=== PATIENT | male | born 1985 | race Caucasian/White ===

== ENCOUNTER 2016-03-11 19:20 | Emergency (ER) | payer MEDICARE, OTHER ==
[2016-03-11 19:47] VITALS: BP 126/74; PULSE 87; RESP 18; TEMP 97
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
== END 2016-03-11 20:26 | disposition home or self-care (01) ==
LOC: EC 19:20
DX: R68.84 Jaw pain (principal); Z79.899 Other long term (current) drug therapy; Z79.51 Long term (current) use of inhaled steroids; Z88.5 Allergy status to narcotic agent; Z88.8 Allergy status to other drugs, medicaments and biological substances; J44.9 Chronic obstructive pulmonary disease, unspecified; F17.200 Nicotine dependence, unspecified, uncomplicated
CPT/HCPCS: 99283

== ENCOUNTER 2016-04-16 09:50 | Emergency (ER) | payer MEDICARE, OTHER ==
[2016-04-16 09:57] VITALS: BP 138/80; PULSE 76; RESP 18; TEMP 97
[2016-04-16] MEDS ORDERED: BUPIVACAINE (PF) 0.5% 30 ML VIAL INTRAARTIC STA (10:22)
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
== END 2016-04-16 10:38 | disposition home or self-care (01) ==
LOC: EC 09:50
DX: K02.9 Dental caries, unspecified (principal); F17.200 Nicotine dependence, unspecified, uncomplicated; Z88.5 Allergy status to narcotic agent
CPT/HCPCS: 64400; 99282

== ENCOUNTER 2016-05-03 13:41 | Emergency (ER) | payer MEDICARE, OTHER ==
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
[2016-05-03 15:00] VITALS: BP 129/80; PULSE 54; RESP 15; TEMP 97.7
== END 2016-05-03 14:59 | disposition home or self-care (01) ==
LOC: EC 13:41
DX: K08.89 Other specified disorders of teeth and supporting structures (principal); F17.200 Nicotine dependence, unspecified, uncomplicated
CPT/HCPCS: 99282

== ENCOUNTER 2016-06-14 17:23 | Emergency (ER) | payer MEDICARE, OTHER ==
[2016-06-14 17:37] VITALS: BP 140/85; PULSE 84; RESP 22; TEMP 97.6
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
== END 2016-06-14 17:56 | disposition home or self-care (01) ==
LOC: EC 17:23
DX: K08.89 Other specified disorders of teeth and supporting structures (principal); F17.200 Nicotine dependence, unspecified, uncomplicated; Z88.6 Allergy status to analgesic agent
CPT/HCPCS: 99282

== ENCOUNTER 2016-06-25 20:36 | Emergency (ER) | payer MEDICARE, OTHER ==
[2016-06-25 20:41] VITALS: BP 137/84; PULSE 89; RESP 20; TEMP 98.7
[2016-06-25] MEDS ORDERED: KETOROLAC 30 MG/ML 1 ML VIAL IVP STA (20:49)
[2016-06-25] MEDS ORDERED: SODIUM CHLORIDE 0.9% 1,000 ML IV STA (20:49)
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
[2016-06-25 21:22] LABS: Basophils # (A) 0.2 k/uL (0-0.2); Basophils % (A) 1 %; CH 31.3; CHCM 34.3; Eosinophils # (A) 0.2 k/uL (0-0.7); Eosinophils % (A) 1 %; HCT 48.6 % (39.0-53.0); HDW 2.56; HGB 16.3 gm/dL (13.0-17.5); Luc # (Auto) 0.23; Luc % (Auto) 2; Lymphocytes # (A) 3.1 k/uL (1.0-4.8); Lymphocytes % (A) 25 %; MCH 30.6 pg (25.0-35.0); MCHC 33.4 g/dL (31.0-37.0); MCV 91.6 fL (80.0-100.0); Mean Platelet Volume 6.5; Monocytes # (A) 0.8 k/uL (0-1.0); Monocytes % (A) 6 %; Neutrophils # (A) 8.1 k/uL (1.3-7.7); Neutrophils % (A) 65 %; RBC 5.31 m/uL (4.30-5.90); RDW 13.4 % (11.5-15.5); WBC 12.5 k/uL (3.8-10.6); WBC (Perox) 11.69
[2016-06-25 21:24] LABS: Appearance,Urine Cloudy (Clear); Bilirubin,Urine Negative (Negative); Glucose,Urine (UA) Negative (Negative); Ketones,Urine Negative (Negative); Leukocyte Esterase,Urine Trace (Negative); Mucus,Urine Moderate /hpf; Nitrite,Urine Negative (Negative); Particle Count 6387; Protein,Urine Trace (Negative); Squamous Epithelial Cell,Urine <1 /hpf (0-4); UA Billing (MACRO vs. MICRO) MICRO; Urobilinogen,Urine <2.0 mg/dL (<2.0); WBC,Urine 10 /hpf (0-5)
[2016-06-25 21:32] LABS: ALT 37 U/L (21-72); AST 22 U/L (17-59); Alkaline Phosphatase 84 U/L (38-126); Anion Gap 13 mmol/L; Blood Urea Nitrogen 17 mg/dL (9-20); Calcium 10.5 mg/dL (8.4-10.2); Carbon Dioxide 27 mmol/L (22-30); Chloride 105 mmol/L (98-107); Glucose 89 mg/dL (74-99); Non-African American GFR(MDRD) >60 (>60 ml/min/1.73 sqM); Potassium 4.1 mmol/L (3.5-5.1); Sodium 145 mmol/L (137-145); Total Bilirubin 0.5 mg/dL (0.2-1.3)
--- NOTE | 2016-06-25 21:40 | CT ---
EXAMINATION TYPE: CT abdomen pelvis wo con DATE OF EXAM: 06/25/2016 9:31 PM HISTORY: Right lower quadrant pain after lifting heavy object [address] DLP: 862.00 mGycm. Automated Exposure Control for Dose Reduction was Utilized. TECHNIQUE: CT scan of the abdomen and pelvis is performed without oral or IV contrast. COMPARISON: CT abdomen pelvis December 26, 2015 FINDINGS: Within the limitations of a non-contrast study, the following observations are made. LUNG BASES: No significant abnormality is appreciated. LIVER/GB: Cholecystectomy clips are redemonstrated. PANCREAS: No significant abnormality is seen. SPLEEN: No significant abnormality is seen. ADRENALS: No significant abnormality is seen. KIDNEYS: There are 5-8 calculi scattered throughout the bilateral kidneys each measuring 3 mm or smal ler in size. No hydronephrosis or obstructing renal calculi are seen bilaterally. BOWEL: Evaluation bowel is suboptimal secondary to lack of enteric contrast. There is single fluid-fi lled prominent small bowel loop in the left midabdomen. There is slightly prominent stomach suggestin g recent meal ingestion. Remainder small bowel shows no suspicious dilatation. Fecal material is seen in nondistended colon. Normal-appearing appendix is seen. GENITAL ORGANS: No gross abnormality seen. LYMPH NODES: No greater than 1cm abdominal or pelvic lymph nodes are appreciated. BONES: There is mild facet arthropathy lower lumbar levels. OTHER: No significant additional abnormality is seen. IMPRESSION: Redemonstration of multiple small bilateral renal calculi without hydronephrosis or obstr ucting renal calculi seen. No significant acute finding is seen to account for patient's symptoms.
== END 2016-06-25 22:24 | disposition home or self-care (01) ==
LOC: EC 20:36
DX: S39.012A Strain of muscle, fascia and tendon of lower back, initial encounter (principal); N39.0 Urinary tract infection, site not specified; K08.89 Other specified disorders of teeth and supporting structures; F17.200 Nicotine dependence, unspecified, uncomplicated; Z88.5 Allergy status to narcotic agent; Z88.6 Allergy status to analgesic agent; Z82.69 Family history of other diseases of the musculoskeletal system and connective tissue; X58.XXXA Exposure to other specified factors, initial encounter
CPT/HCPCS: 99284; 96374; 96361; 36415; 80053; 85025; 81001; 87491; 87591; 74176; J1885

== ENCOUNTER 2016-08-31 19:13 | Emergency (ER) | payer MEDICARE, OTHER ==
[2016-08-31 19:19] VITALS: RESP 18
[2016-08-31] MEDS ORDERED: SODIUM CHLORIDE 0.9% 1,000 ML IV STA (19:30)
[2016-08-31] MEDS ORDERED: ONDANSETRON 4 MG/2 ML VIAL IVP STA (19:32)
[2016-08-31 19:51] LABS: Basophils # (A) 0.1 k/uL (0-0.2); Basophils % (A) 1 %; CH 29.8; CHCM 33.6; Eosinophils # (A) 0.2 k/uL (0-0.7); Eosinophils % (A) 2 %; HCT 44.4 % (39.0-53.0); HDW 2.51; HGB 15.1 gm/dL (13.0-17.5); Luc # (Auto) 0.28; Luc % (Auto) 3; Lymphocytes # (A) 2.9 k/uL (1.0-4.8); Lymphocytes % (A) 33 %; MCH 30.3 pg (25.0-35.0); MCHC 34.1 g/dL (31.0-37.0); Mean Platelet Volume 6.4; Monocytes # (A) 0.6 k/uL (0-1.0); Monocytes % (A) 7 %; Neutrophils # (A) 4.8 k/uL (1.3-7.7); Neutrophils % (A) 54 %; RBC 4.98 m/uL (4.30-5.90); RDW 12.8 % (11.5-15.5); WBC 8.8 k/uL (3.8-10.6); WBC (Perox) 8.97
[2016-08-31 20:02] LABS: ALT 34 U/L (21-72); AST 21 U/L (17-59); Acetaminophen <10.0 ug/mL; Alcohol <10 mg/dL; Alkaline Phosphatase 74 U/L (38-126); Anion Gap 13 mmol/L; Blood Urea Nitrogen 11 mg/dL (9-20); Calcium 9.7 mg/dL (8.4-10.2); Carbon Dioxide 25 mmol/L (22-30); Chloride 106 mmol/L (98-107); Glucose 95 mg/dL (74-99); Non-African American GFR(MDRD) >60 (>60 ml/min/1.73 sqM); Salicylate 1.5 mg/dL; Sodium 144 mmol/L (137-145); Total Bilirubin 0.5 mg/dL (0.2-1.3); Total Protein 7.1 g/dL (6.3-8.2)
--- NOTE | 2016-08-31 20:04 | XR ---
EXAMINATION TYPE: XR chest 2V DATE OF EXAM: 08/31/2016 COMPARISON: NONE HISTORY: Drug overdose TECHNIQUE: Frontal and lateral views of the chest are obtained. FINDINGS: Heart and mediastinum are normal. Lungs are clear. Diaphragm is normal. Bony thorax is nor mal. There are chest leads. IMPRESSION: Normal chest
--- NOTE | 2016-08-31 20:05 | XR ---
EXAMINATION TYPE: XR KUB DATE OF EXAM: 08/31/2016 COMPARISON: 12/26/2015 HISTORY: Drug overdose abdominal pain TECHNIQUE: 2 views FINDINGS: Bowel gas pattern is normal. There is no sign of intestinal obstruction or pneumoperitoneum . There are clips from cholecystectomy. There are no pathologic calcifications. Bony structures are i ntact. IMPRESSION: Nonacute abdomen. No change.
--- NOTE | 2016-08-31 20:15 | CT ---
EXAMINATION TYPE: CT renal stones wo con DATE OF EXAM: 08/31/2016 HISTORY: Right side abdominal pain. Hx of kidney stones. CT DLP: 683.7 mGycm. Automated Exposure Control for Dose Reduction was Utilized. TECHNIQUE: CT scan of the abdomen and pelvis is performed without oral or IV contrast. COMPARISON: 06/25/2016 FINDINGS: Lung bases are clear. There is no pleural effusion. Liver spleen pancreas appear normal. Th ere are clips from cholecystectomy. There is no adrenal mass. Kidneys have normal size and contour. T here is no hydronephrosis. There are multiple bilateral renal calculi that measure up to 6 mm. There is no hydronephrosis. Ureters are not dilated. I see no intestinal wall thickening. There are no dilated loops. Bladder distends smoothly. There is no sign of a pelvic mass. There is no ascites. Appendix appears normal. I see no bony destructive pro cess. IMPRESSION: Numerous bilateral renal calculi are similar to old CT scan. No evidence of renal obstruc tion. Normal appendix.
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
[2016-08-31 23:43] VITALS: BP 144/71; PULSE 82; TEMP 98.1
== END 2016-08-31 23:43 | disposition home or self-care (01) ==
LOC: EC 19:13
DX: T40.1X1A Poisoning by heroin, accidental (unintentional), initial encounter (principal); R11.2 Nausea with vomiting, unspecified; R10.9 Unspecified abdominal pain; F17.200 Nicotine dependence, unspecified, uncomplicated; Z88.5 Allergy status to narcotic agent; Z87.442 Personal history of urinary calculi
CPT/HCPCS: 36415; 93005; 80053; 85025; 83520 ×2; 80320; 71020; 74000; 74150; 99285; 96374; 96361 ×2; J2405

== ENCOUNTER 2016-09-18 16:48 | Emergency (ER) | payer OTHER ==
[2016-09-18 17:28] VITALS: RESP 18
[2016-09-18] MEDS ORDERED: KETOROLAC 30 MG/ML 1 ML VIAL IVP STA (18:07)
[2016-09-18] MEDS ORDERED: SODIUM CHLORIDE 0.9% 1,000 ML IV STA (18:07)
[2016-09-18] MEDS ORDERED: ONDANSETRON 4 MG/2 ML VIAL IVP STA (18:07)
[2016-09-18 18:41] LABS: WBC 9.9 k/uL (3.8-10.6); WBC (Perox) 9.07
[2016-09-18 18:42] LABS: Basophils # (A) 0.1 k/uL (0-0.2); Basophils % (A) 1 %; CH 30.8; Eosinophils # (A) 0.2 k/uL (0-0.7); Eosinophils % (A) 2 %; HDW 2.47; HGB 15.3 gm/dL (13.0-17.5); Luc % (Auto) 2; Lymphocytes # (A) 2.5 k/uL (1.0-4.8); Lymphocytes % (A) 25 %; MCV 91.1 fL (80.0-100.0); Monocytes # (A) 0.9 k/uL (0-1.0); Monocytes % (A) 9 %; Neutrophils % (A) 61 %; RBC 4.94 m/uL (4.30-5.90); RDW 14.1 % (11.5-15.5)
[2016-09-18 18:47] LABS: Amorphous Sediment,Urine Moderate /hpf; Appearance,Urine Turbid (Clear); Bilirubin,Urine Negative (Negative); Glucose,Urine (UA) Negative (Negative); Ketones,Urine Negative (Negative); Leukocyte Esterase,Urine Negative (Negative); Mucus,Urine Rare /hpf; Nitrite,Urine Negative (Negative); Particle Count 9345; Protein,Urine Trace (Negative); RBC,Urine >182 /hpf (0-5); Specific Gravity,Urine 1.015 (1.001-1.035); UA Billing (MACRO vs. MICRO) MICRO; Urobilinogen,Urine <2.0 mg/dL (<2.0)
--- NOTE | 2016-09-18 18:49 | XR ---
EXAMINATION TYPE: XR KUB DATE OF EXAM: 09/18/2016 COMPARISON: 08/31/2016 HISTORY: Abdominal pain TECHNIQUE: 2 views FINDINGS: Bowel gas pattern is normal. There is no sign of intestinal obstruction or pneumoperitoneum . Fecal pattern is normal. There are clips from cholecystectomy. Lung bases are clear. IMPRESSION: Nonacute abdomen. No change. There is probably a 3 mm left renal calculus.
[2016-09-18 18:51] LABS: ALT 30 U/L (21-72); AST 18 U/L (17-59); Alkaline Phosphatase 81 U/L (38-126); Amylase 63 U/L (30-110); Anion Gap 8 mmol/L; Blood Urea Nitrogen 13 mg/dL (9-20); Calcium 9.9 mg/dL (8.4-10.2); Carbon Dioxide 28 mmol/L (22-30); Chloride 105 mmol/L (98-107); Glucose 79 mg/dL (74-99); Non-African American GFR(MDRD) >60 (>60 ml/min/1.73 sqM); Potassium 4.5 mmol/L (3.5-5.1); Sodium 141 mmol/L (137-145); Total Bilirubin 0.5 mg/dL (0.2-1.3); Total Protein 7.2 g/dL (6.3-8.2)
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
[2016-09-18 19:08] VITALS: BP 116/78; PULSE 97; TEMP 98.3
== END 2016-09-18 19:15 | disposition home or self-care (01) ==
LOC: EC 16:48
DX: N20.0 Calculus of kidney (principal); R11.2 Nausea with vomiting, unspecified; F17.200 Nicotine dependence, unspecified, uncomplicated; Z88.5 Allergy status to narcotic agent; Z90.49 Acquired absence of other specified parts of digestive tract; Z80.0 Family history of malignant neoplasm of digestive organs
CPT/HCPCS: 36415; 80053; 82150; 83690; 85025; 81001; 80306; 74000; 99284; 96374; 96375; 96361; J2405; J1885

== ENCOUNTER 2016-11-18 18:00 | Emergency (ER) | payer OTHER ==
[2016-11-18 18:07] VITALS: BP 136/66; PULSE 103; RESP 20; TEMP 98.2
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
== END 2016-11-18 18:41 | disposition home or self-care (01) ==
LOC: SUPCPDRO 18:00 → EC 18:00
DX: K02.9 Dental caries, unspecified (principal); F17.200 Nicotine dependence, unspecified, uncomplicated; Z79.899 Other long term (current) drug therapy
CPT/HCPCS: 99282

== ENCOUNTER 2017-04-04 17:05 | Emergency (ER) | payer OTHER ==
[2017-04-04 17:11] VITALS: BP 141/94; PULSE 109; RESP 18; TEMP 98.6
[2017-04-04] MEDS ORDERED: NALOXONE 0.4 MG/ML 1 ML VIAL IV STA (17:22)
[2017-04-04] MEDS ORDERED: NALOXONE 0.4 MG/ML 10 ML VIAL IVP PRN (17:23)
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
== END 2017-04-04 18:15 | disposition left against medical advice (07) ==
LOC: EC 17:05
DX: T40.1X1A Poisoning by heroin, accidental (unintentional), initial encounter (principal); F41.9 Anxiety disorder, unspecified; F17.200 Nicotine dependence, unspecified, uncomplicated; Z79.899 Other long term (current) drug therapy
CPT/HCPCS: 99283; 96374; J2310

== ENCOUNTER 2018-10-22 01:34 | Emergency (ER) | payer OTHER ==
[2018-10-22 02:09] VITALS: BP 151/99; PULSE 82; RESP 18; TEMP 98.8
[2018-10-22] MEDS ORDERED: KETOROLAC 30 MG/ML 1 ML VIAL IM STA (02:26)
[2018-10-22] MEDS ORDERED: ACET/COD 300 MG/30 MG STARTER PACK 6 TAB BTL PO STA (02:26)
[2018-10-22] MEDS ORDERED: PENICILLIN VK 500MG STARTER 4 TAB BTL PO STA (02:26)
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
== END 2018-10-22 02:43 | disposition home or self-care (01) ==
LOC: EC 01:34
DX: K04.7 Periapical abscess without sinus (principal); S02.5XXA Fracture of tooth (traumatic), initial encounter for closed fracture; J44.9 Chronic obstructive pulmonary disease, unspecified; F41.9 Anxiety disorder, unspecified; F17.200 Nicotine dependence, unspecified, uncomplicated; Z79.899 Other long term (current) drug therapy
CPT/HCPCS: 99283; 96372; J1885

== ENCOUNTER 2018-11-09 19:33 | Emergency (ER) | payer OTHER ==
[2018-11-09 19:59] VITALS: BP 138/91; PULSE 114; RESP 20; TEMP 98.2
[2018-11-09] MEDS ORDERED: KETOROLAC 60 MG/2 ML VIAL IM STA (21:38)
[2018-11-09] MEDS ORDERED: ACET/COD 300 MG/30 MG STARTER PACK 6 TAB BTL PO STA (21:38)
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
[2018-11-09] MEDS ORDERED: PENICILLIN VK 500MG STARTER 4 TAB BTL PO STA (22:03)
== END 2018-11-09 22:12 | disposition home or self-care (01) ==
LOC: EC 19:33
DX: K04.7 Periapical abscess without sinus (principal); K02.9 Dental caries, unspecified; S02.5XXA Fracture of tooth (traumatic), initial encounter for closed fracture; J44.9 Chronic obstructive pulmonary disease, unspecified; F41.9 Anxiety disorder, unspecified; F17.200 Nicotine dependence, unspecified, uncomplicated; Z79.899 Other long term (current) drug therapy; X58.XXXA Exposure to other specified factors, initial encounter
CPT/HCPCS: 99282; 96372; J1885

== ENCOUNTER 2018-12-13 17:32 | Emergency (ER) | payer OTHER ==
[2018-12-13 17:43] VITALS: BP 134/91; PULSE 89; RESP 19; TEMP 98
[2018-12-13] MEDS ORDERED: BUPIVACAINE (PF) 0.5% 30 ML VIAL SQ STA (18:10)
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
[2018-12-13] MEDS ORDERED: ACET/COD 300 MG/30 MG STARTER PACK 6 TAB BTL PO STA (18:50)
== END 2018-12-13 19:19 | disposition home or self-care (01) ==
LOC: EC 17:32
DX: K04.7 Periapical abscess without sinus (principal); S02.5XXA Fracture of tooth (traumatic), initial encounter for closed fracture; J44.9 Chronic obstructive pulmonary disease, unspecified; H91.90 Unspecified hearing loss, unspecified ear; F41.9 Anxiety disorder, unspecified; F17.200 Nicotine dependence, unspecified, uncomplicated; Z87.01 Personal history of pneumonia (recurrent); Z87.442 Personal history of urinary calculi; Z86.69 Personal history of other diseases of the nervous system and sense organs; Z87.820 Personal history of traumatic brain injury; Z90.49 Acquired absence of other specified parts of digestive tract; Z79.899 Other long term (current) drug therapy; X58.XXXA Exposure to other specified factors, initial encounter
CPT/HCPCS: 41800; 99282

== ENCOUNTER 2018-12-31 16:46 | Emergency (ER) | payer OTHER ==
[2018-12-31 17:00] VITALS: BP 105/80; RESP 18; TEMP 97.7
[2018-12-31] MEDS ORDERED: PENICILLIN VK 500MG STARTER 4 TAB BTL PO STA (17:20)
[2018-12-31] MEDS ORDERED: KETOROLAC 30 MG/ML 1 ML VIAL IM STA (17:20)
[2018-12-31] MEDS ORDERED: MORPHINE SULFATE 4 MG/ML SYRINGE IM STA (17:20)
[2018-12-31] MEDS ORDERED: ACET/COD 300 MG/30 MG STARTER PACK 6 TAB BTL PO STA (17:20)
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
[2018-12-31 17:59] VITALS: PULSE 115
== END 2018-12-31 18:06 | disposition home or self-care (01) ==
LOC: EC 16:46
DX: K08.89 Other specified disorders of teeth and supporting structures (principal); S02.5XXA Fracture of tooth (traumatic), initial encounter for closed fracture; F17.200 Nicotine dependence, unspecified, uncomplicated; X58.XXXA Exposure to other specified factors, initial encounter
CPT/HCPCS: 99282; 96372 ×2; J2270; J1885

== ENCOUNTER 2019-01-14 11:22 | Emergency (ER) | payer OTHER ==
[2019-01-14 11:50] VITALS: BP 141/103; PULSE 100; RESP 18; TEMP 97.6
[2019-01-14] MEDS ORDERED: PENICILLIN VK 500MG STARTER 4 TAB BTL PO STA (12:51)
[2019-01-14] MEDS ORDERED: ACET/COD 300 MG/30 MG STARTER PACK 6 TAB BTL PO STA (12:51)
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
== END 2019-01-14 13:03 | disposition home or self-care (01) ==
LOC: EC 11:22
DX: K08.89 Other specified disorders of teeth and supporting structures (principal); K03.81 Cracked tooth; F17.200 Nicotine dependence, unspecified, uncomplicated
CPT/HCPCS: 99282

== ENCOUNTER 2021-06-12 10:19 | Emergency (ER) | payer OTHER ==
[2021-06-12] MEDS ORDERED: traMADol 50 MG STARTER PACK 3 TAB BTL PO STA (10:44)
[2021-06-12] MEDS ORDERED: HYDROcodone/APAP 5-325MG 1 EACH TAB PO STA (10:44)
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
[2021-06-12 11:16] VITALS: BP 98/76; PULSE 101; RESP 18; TEMP 97.2
== END 2021-06-12 11:14 | disposition home or self-care (01) ==
LOC: EC 10:19
DX: K04.7 Periapical abscess without sinus (principal); J44.9 Chronic obstructive pulmonary disease, unspecified; K21.9 Gastro-esophageal reflux disease without esophagitis; F41.9 Anxiety disorder, unspecified; F31.9 Bipolar disorder, unspecified; F17.200 Nicotine dependence, unspecified, uncomplicated; Z88.5 Allergy status to narcotic agent; Z87.442 Personal history of urinary calculi; Z90.49 Acquired absence of other specified parts of digestive tract
CPT/HCPCS: 99282

== ENCOUNTER 2021-09-23 18:48 | Emergency (ER) | payer OTHER ==
[2021-09-23 19:10] VITALS: TEMP 97.8
[2021-09-23] MEDS ORDERED: FLUORESCEIN STRIPS 1 MG STRIP LEFT EYE ONE (19:56)
[2021-09-23] MEDS ORDERED: PROPARACAINE 0.5% OPHTH DROPS 15 ML BTL LEFT EYE STA (19:56)
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
[2021-09-23 20:24] VITALS: BP 129/84; PULSE 78; RESP 20
== END 2021-09-23 20:23 | disposition home or self-care (01) ==
LOC: EC 18:48
DX: S05.02XA Injury of conjunctiva and corneal abrasion without foreign body, left eye, initial encounter (principal); J44.9 Chronic obstructive pulmonary disease, unspecified; Z88.5 Allergy status to narcotic agent; Z88.6 Allergy status to analgesic agent; F41.9 Anxiety disorder, unspecified; F31.9 Bipolar disorder, unspecified; F17.200 Nicotine dependence, unspecified, uncomplicated; Z72.89 Other problems related to lifestyle
CPT/HCPCS: 99283

== ENCOUNTER 2022-02-21 13:55 | Emergency (ER) | payer OTHER ==
[2022-02-21] MEDS ORDERED: LIDOCAINE/EPINEPHR/TETRACAINE 5 ML BOTTLE TOPICAL ONE (16:01)
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
[2022-02-21] MEDS ORDERED: SULFAMETHOX-TMP 800-160MG 1 EACH TAB PO STA (17:01)
[2022-02-21 17:19] VITALS: BP 148/78; PULSE 70; RESP 16; TEMP 98.2
== END 2022-02-21 17:19 | disposition home or self-care (01) ==
LOC: EC 13:55
DX: L02.412 Cutaneous abscess of left axilla (principal); J44.9 Chronic obstructive pulmonary disease, unspecified; F41.9 Anxiety disorder, unspecified; F31.9 Bipolar disorder, unspecified; F17.200 Nicotine dependence, unspecified, uncomplicated; Z88.7 Allergy status to serum and vaccine; Z88.5 Allergy status to narcotic agent
CPT/HCPCS: 10060; 87070; 87205; 99283

== ENCOUNTER 2022-06-23 16:40 | Emergency (ER) | payer OTHER ==
[2022-06-23 17:01] VITALS: TEMP 97.9
[2022-06-23 17:45] VITALS: RESP 16
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
[2022-06-23 18:21] LABS: Basophils # (A) 0.1 k/uL (0-0.2); Basophils % (A) 1 %; Eosinophils # (A) 0.4 k/uL (0-0.7); Eosinophils % (A) 3 %; HCT 47.3 % (39.0-53.0); HGB 16.3 gm/dL (13.0-17.5); Lymphocytes # (A) 2.3 k/uL (1.0-4.8); Lymphocytes % (A) 20 %; MCH 29.7 pg (25.0-35.0); MCHC 34.5 g/dL (31.0-37.0); MCV 86.1 fL (80.0-100.0); Mean Platelet Volume 7.3; Monocytes # (A) 0.7 k/uL (0-1.0); Monocytes % (A) 6 %; Neutrophils % (A) 68 %; Platelet Count 347 k/uL (150-450); RBC 5.49 m/uL (4.30-5.90); RDW 13.1 % (11.5-15.5); WBC 11.8 k/uL (3.8-10.6)
[2022-06-23 18:33] LABS: ALT 58 U/L (4-49); AST 42 U/L (17-59); African American GFR (CKD) >90 (>60 ml/min/1.73 sqM); Albumin 4.5 g/dL (3.5-5.0); Alkaline Phosphatase 115 U/L (38-126); Anion Gap 8 mmol/L; Blood Urea Nitrogen 15 mg/dL (9-20); Carbon Dioxide 29 mmol/L (22-30); Chloride 102 mmol/L (98-107); Glucose 91 mg/dL (74-99); Non-African American GFR(CKD) >90 (>60 ml/min/1.73 sqM); Potassium 4.3 mmol/L (3.5-5.1); Sodium 139 mmol/L (137-145); Total Bilirubin 0.6 mg/dL (0.2-1.3); Total Protein 7.7 g/dL (6.3-8.2)
--- NOTE | 2022-06-23 18:43 | XR ---
EXAMINATION: XR chest 2V: 06/23/2022 6:12 PM CLINICAL INDICATION: cough TECHNIQUE: Departmental protocol COMPARISON: 08/31/2016 FINDINGS: The overlying soft tissues are prominent. The lungs appear to be clear. The pleural spaces are negative. EKG leads. The cardiac silhouette is not enlarged. The remainder of the mediastinal silhouette is unr emarkable. The skeletal structures and soft tissues are negative for acute findings. IMPRESSION: No definite acute radiographic process.
[2022-06-23 19:16] VITALS: BP 116/78; PULSE 81
== END 2022-06-23 19:16 | disposition home or self-care (01) ==
LOC: EC 16:40
DX: R05.9 Cough, unspecified (principal); J44.9 Chronic obstructive pulmonary disease, unspecified; F17.200 Nicotine dependence, unspecified, uncomplicated; Z20.822 Contact with and (suspected) exposure to COVID-19; Z88.5 Allergy status to narcotic agent
CPT/HCPCS: 36415; 71046; 80053; 83605; 85025; 87636; 93005; 99285